=== PATIENT | male | born 1975 | race Asian ===

== ENCOUNTER 2018-02-12 11:01 | Inpatient (IN) | payer BC ==
[2018-02-12] MEDS ORDERED: Morphine Sulfate 2 mg/mL 1mL Syr IVP ONE (11:27)
[2018-02-12] MEDS ORDERED: Sodium Chloride 0.9% 1,000 ML IV ONE (11:27)
--- NOTE | 2018-02-12 11:32 | ED Physician Chart ---
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:: Allergies Allergy/AdvReac Type Severity Reaction Status Date / Time No Known Allergies Allergy Verified 02/12/18 11:09 Vitals:: Vital Signs - 8 hr 02/12/18 11:10 Temp 97.1 F HR 63 RR 18 BP 113/72 O2 Sat % 97 Historian:: Patient, Family Member Review:: Nurse's Note Reviewed ED Review of Systems - Review of Systems General/Constitutional: No fever, No chills, No weight loss, No weakness, No diaphoresis, No edema, No loss of appetite Skin: No skin lesions, No rash, No bruising Head: No headache, No light-headedness Eyes: No loss of vision, No pain, No diplopia ENT: No earache, No nasal drainage, No sore throat, No tinnitus Neck: No neck pain, No swelling, No thyromegaly, No stiffness, No mass noted Cardio Vascular: No chest pain, No palpitations, No PND, No orthopnea, No edema Pulmonary: No SOB, No cough, No sputum, No wheezing GI: Nausea, Vomiting, Diarrhea, Pain, No melena, No hematochezia, No constipation, No hematemesis G/U: Dysuria, No frequency, No hematuria, No nacturia Musculoskeletal: No bone or joint pain, No back pain, No muscle pain Endocrine: No polyuria, No polydipsia Psychiatric: No prior psych history, No depression, No anxiety, No suicidal ideation, No homicidal ideation, No auditory hallucination, No visual hallucination Hematopoietic: No bruising, No lymphadenopathy Allergic/Immuno: No urticaria, No angioedema Neurological: No syncope, No focal symptoms, No weakness, No paresthesia, No headache, No seizure, No dizziness, No confusion, No vertigo ED Past Medical History - Past Medical History Obtainable: Yes Past Medical History: No significant medical hx Family History: HTN Social History: Non Smoker, No Alcohol, No Drug Use, Surgical History: Appendectomy Psychiatricy History: None Medication: Reviewed Family Medical History - Family Member Mother History Unknown: Yes ED Physical Exam - Physical Examination General/Constitutional: Awake, Well-developed, well-nourished, Alert, No distress, GCS 15, Non-toxic appearing, Ambulatory Head: Atraumatic Eyes: Lids, conjuctiva normal, PERRL, EOMI Skin: Nl inspection, No rash, No skin lesions, No ecchymosis, Well hydrated, No lymphadenopathy ENMT: External ears, nose nl, TM canals nl, Nasal exam nl, Lips, teeth, gums nl , Oropharynx nl, Tonsils nl Neck: Nontender, Full ROM w/o pain, No JVD, No nuchal rigidity, No bruit, No mass, No stridor Respiratory: Nl effort/Exclusion, Clear to Auscultation, No Wheeze/Rhonchi/Rales Cardio Vascular: No murmur, gallop, rubs, NL S1 S2, Carotid/Femoral/Distal pulses equal bilaterally Other Cardio Vascular comments:: Irregular Irregular Rhythm GI: No tenderness/rebounding/guarding, No organomegaly, No hernia, Normal BS's, Nondistended, No mass/bruits, No McBurney tenderness, Rectum exam nl Other GI comments:: no pulsatile masses : No CVA tenderness Extremities: No tenderness or effusion, Full ROM, normal strength in all extremities, No edema, Normal digits & nails Neuro/Psych: Alert/oriented, DTR's symmetric, Normal sensory exam, Normal motor strength, Judgement/insight normal, Mood normal, Normal gait, No focal deficits Misc: Normal back, No paraspinal tenderness ED Labs/Radiology/EKG Results - Lab Results Comments:: U/A: + Blood; 0-2 RBCs; + WBCs; Glucose: 149 - Radiology Results Comments:: + Severely Distended Stomach - EKG Interpretations EKG Time:: 11:41 Rate & Rhythm: 59; Atrial Fibrillation Comments:: non-specific st-t changes ED Septic Shock - . Is Septic Shock (SBP<90, OR Lactate>4 mmol\L) present?: No - <6hrs of presentation: Vital Signs: Vital Signs - 8 hr 02/12/18 11:10 Temp 97.1 F HR 63 RR 18 BP 113/72 O2 Sat % 97 ED Reassessment (Disposition) - Reassessment Reassessment Condition:: Improved - Diagnosis Diagnosis:: Dx: Atrial Fibrillation; Abdominal Pain; Hematuria; UTI; Hyperglycemia; Gastric Obstruction/Distention; AGE - Aftercare/Follow up Instructions Aftercare/Follow-Up Instructions:: Counseled pt regarding lab results/diagnosis & need follow up, Counseled pt & family regarding lab results/diagnosis & need follow up - Patient Disposition Discharge/Transfer:: Acute Care w/in this hosp Accepting Physician:: Dr. Cole Time Called:: 1300 Time Responded:: 13:00 Admitted to:: Telemetry Spoke to:: Dr. Cole Admitting Medical Physician:: Dr. Cole Condition at Disposition:: Stable, Improved
[2018-02-12] MEDS ORDERED: Morphine Sulfate 2 mg/mL 1mL Syr ONE (11:44)
[2018-02-12 11:49] LABS: % BASOPHILS 1.2 % (0.0-2.0); % EOSINOPHILS 0.6 % (0.0-5.0); % LYMPHOCYTES 7.7 % (20.0-50.0); % MONOCYTES 4.3 % (2.0-10.0); % NEUTROPHILS 86.2 % (40.0-80.0); BASOPHILE ABSOLUTE 0.1 Th/cumm (0-0.2); EOSINOPHILE ABSOLUTE 0.1 Th/cmm (0.1-0.4); HEMATOCRIT 47.9 % (41.0-60); LYMPHOCYTE ABSOLUTE 0.8 Th/cmm (1.5-3.0); MEAN CELL VOLUME 90.9 fl (80-99); MEAN CORPUSCULAR HEMOGLOBIN 30.4 pg (26.0-30.0); MEAN CORPUSCULAR HGB CONC 33.4 pg (28.0-36.0); MEAN PLATELET VOLUME 8.9 fl; MONOCYTE ABSOLUTE 0.4 Th/cmm (0.3-1.0); NEUTROPHILE ABSOLUTE 8.6 Th/cmm (1.8-8.0); PLATELET COUNT 212 Th/cmm (150-400); RED BLOOD COUNT 5.27 Mil/cmm (4.30-5.70); RED CELL DISTRIBUTION WIDTH 11.9 % (11.5-20.0)
[2018-02-12 11:59] LABS: INR 1.06 (0.5-1.4)
[2018-02-12 12:12] LABS: URINE MICROSCOPIC INDICATED? YES; URINE SOURCE CLEAN C
[2018-02-12 12:13] LABS: ALB/GLOB RATIO 1.9 (1.0-1.8); ALBUMIN 4.7 gm/dL (4.2-5.5); ALKALINE PHOSPHATASE 79 U/L (34-104); ANION GAP 11.5 (7.0-16.0); BILIRUBIN,TOTAL 0.5 mg/dL (0.3-1.0); BUN - UREA NITROGEN 13 mg/dL (7-25); CALCIUM SERUM 9.5 mg/dL (8.6-10.3); CARBON DIOXIDE 22.3 mEq/L (21.0-31.0); CHLORIDE 106 mEq/L (98-107); CHOLESTEROL 171 mg/dL (<200); CREATININE - SERUM 1.1 mg/dL (0.7-1.3); CREATININE KINASE 111 U/L (30-223); GFR AFRICAN-AMERICAN > 60.0 ml/min (>90); GFR NON AFRICAN-AMERICAN > 60.0 ml/min; GLUCOSE 149 mg/dL (70-105); HDL -HIGH DENSITY LIPOPROTEIN 46 mg/dL (23-92); POTASSIUM SERUM 3.8 mEq/L (3.5-5.1); SGOT 14 U/L (13-39); SGPT/ALT 10 U/L (7-52); SODIUM SERUM 136 mEq/L (136-145); TOTAL PROTEIN,SERUM 7.2 gm/dL (6.0-8.3); TRIGLYCERIDES 80 mg/dL (<150)
[2018-02-12 12:14] LABS: URINE BILIRUBIN NEGATIVE (NEGATIVE); URINE BLOOD LARGE (NEGATIVE); URINE GLUCOSE (UA) NEGATIVE (NEGATIVE); URINE KETONE TRACE mg/dL (NEGATIVE); URINE LEUKOCYTE ESTERASE NEGATIVE (NEGATIVE); URINE NITRATE NEGATIVE (NEGATIVE); URINE PROTEIN NEGATIVE (NEGATIVE); URINE UROBILINOGEN 0.2 E.U./dL (0.2 - 1.0)
--- NOTE | 2018-02-12 12:14 | Diagnostic Imaging Report ---
Exam: CT examination abdomen pelvis. HISTORY: Abdominal pain Total DLP equals 428 CTDI equals 8.0 Findings: Multiple contiguous thin section of the abdomen pelvis obtained from lower thorax to pubic symphysis without the administration of oral or intravenous contrast material, no prior studies available comparison. The study demonstrates normal aeration of lung parenchyma the bases. The liver and spleen intact. The stomach severely distended with food content. The gallbladder is normal. The adrenal glands intact. The kidneys demonstrate no evidence of obstructive uropathy or nephrolithiasis. No free fluid is noted. The bowel gas impression nonspecific. There is evidence for mild diverticular disease without diverticulitis. Large amount of fecal content is noted in distal colon. The urinary bladder is intact. The appendix not seen. IMPRESSION: Severely distended stomach with content. Mild diverticulosis. Large amount of fecal content sigmoid colon. Clinical correlation recommended.
[2018-02-12 12:19] LABS: AMYLASE SERUM 27 U/L (29-103); LIPASE 11 U/L (11-82)
[2018-02-12 12:35] LABS: URINE CLARITY CLOUDY (CLEAR); URINE COLOR YELLOW
[2018-02-12 12:36] LABS: URINE AMORPHOUS SEDIMENT MANY URATES (NONE SEEN); URINE BACTERIA NONE SEEN /hpf (NONE SEEN); URINE EPITHELIAL CELLS RARE /lpf (FEW); URINE RBC 0-2 /hpf (0-5); URINE WBC 0-2 /hpf (0-5)
[2018-02-12] MEDS ORDERED: cefTRIAXone 1 GM in Sodium Chloride 0.9% 50 ML IV ONE (14:11)
--- NOTE | 2018-02-12 14:17 | Diagnostic Imaging Report ---
Portable chest x-ray History: Pain Allowing for portable technique the heart size is normal. No focal pulmonary parenchymal processes. No hilar or mediastinal abnormalities. Impression: No acute abnormalities.
[2018-02-12] MEDS ORDERED: HYDROmorphone 1 mg/mL 1mL Syr IVP PRN (18:11)
[2018-02-12] MEDS: Sodium Chloride 0.9% 1,000 ML IV SCH (19:36)
--- NOTE | 2018-02-13 08:49 | History and Physical ---
History of Present Illness - HPI Chief Complaint: Abdominal pain HPI: Patient refer that for 3 days he has having abdominal pain, reason why he came to ER. During ER evaluation was found A-Fib, and UTI. Vital Signs: Last Vital Signs Temp 96.8 F 02/13/18 07:44 Pulse 67 02/13/18 07:44 Resp 17 02/13/18 07:44 BP 106/60 02/13/18 07:44 Pulse Ox 100 02/13/18 07:44 Past Medical History Cardiovascular: Report: No Pertinent Hx Pulmonary: Report: No Pertinent Hx [employer]: Report: No Pertinent Hx GI: Report: Constipation Psych: Report: No Pertinent Hx Musculoskeletal: Report: No Pertinent Hx Rheumatologic: Report: No pertinent Hx Infectious Disease: Report: No Pertinent Hx Renal/: Report: UTI Endocrine: Report: No Pertinent Hx Dermatology: Report: No Pertinent Hx - Past Surgical History Past Surgical History: No pertinent Hx Family Medical History - Family Member Mother History Unknown: Yes Ethnicity: Non- Hx Family Cancer: No Hx Family Coronary Artery Disease: No Hx Family Congestive Heart Failure: No Hx Family Hypertension: No Hx Family Stroke: No Hx Family Diabetes: No Hx Family Seizures: No Hx Family Dementia: No Hx Family AIDS: No Hx Family HIV: No Hx Family COPD: No Hx Family Hepatitis: No Hx Family Psychiatric Problems: No Hx Family Tuberculosis: No Social History Smoke: No Alcohol: None Drugs: None Lives: With Family Domestic Violence: Negative - Allergies Allergies/Adverse Reactions: Allergies Allergy/AdvReac Type Severity Reaction Status Date / Time No Known Allergies Allergy Verified 02/12/18 11:09 Review of Systems - Review of Systems Constitutional: Report: No Significant Eyes: Report: No Significant ENT: Report: No Significant Respiratory: Report: No Significant Cardiovascular: Report: No Significant Gastrointestinal: Report: Other (Abdominal pain) Genitourinary: Report: Dysuria Musculoskeletal: Report: No Significant Skin: Report: No Significant Neurological: Report: No Significant Physical Exam - Physical Exam HEENT: Report: Ears Nose Throat within normal limits Neck: Report: Within normal limits Cardiovascular Systems: Report: Regular, Rate and Rhythm Respiratory: Report: Breath Sounds are within normal limits Abdomen: Report: Non-tender to palpation, Other Back: Report: Inspection of back is within normal limits. Extremities: Report: Non-tender to palpation. Skin: Report: Color of skin is within normal limits Neuro/Psych: Report: Mood affect is within normal limits - Lab Results All Lab Results last 24 hours: Laboratory Results - last 24 hr 02/12/18 02/12/18 02/12/18 11:05 11:35 11:35 WBC 10.0 RBC 5.27 Hgb 16.0 Hct 47.9 MCV 90.9 MCH 30.4 H MCHC Differential 33.4 RDW 11.9 Plt Count 212 MPV 8.9 Neutrophils % 86.2 H Lymphocytes % 7.7 L Monocytes % 4.3 Eosinophils % 0.6 Basophils % 1.2 PT 11.0 INR 1.06 Sodium Potassium Chloride Carbon Dioxide Anion Gap BUN Creatinine Est GFR ( Amer) Est GFR (Non-Af Amer) BUN/Creatinine Ratio Glucose Calcium Total Bilirubin AST ALT Alkaline Phosphatase Creatine Kinase Troponin I B-Natriuretic Peptide Total Protein Albumin Globulin Albumin/Globulin Ratio Triglycerides Cholesterol LDL Cholesterol Direct HDL Cholesterol Amylase Lipase Urine Source CLEAN C Urine Color YELLOW Urine Clarity CLOUDY Urine pH 6.0 Ur Specific [place] >= 1.030 Urine Protein NEGATIVE Urine Glucose (UA) NEGATIVE Urine Ketones TRACE Urine Blood LARGE H Urine Nitrate NEGATIVE Urine Bilirubin NEGATIVE Urine Urobilinogen 0.2 Ur Leukocyte Esterase NEGATIVE Urine RBC 0-2 H Urine WBC 0-2 Ur Epithelial Cells RARE Uric Acid Crystals FEW Amorphous Sediment MANY URATES Urine Bacteria NONE SEEN 02/12/18 02/12/18 02/12/18 11:35 11:35 11:35 WBC RBC Hgb Hct MCV MCH MCHC Differential RDW Plt Count MPV Neutrophils % Lymphocytes % Monocytes % Eosinophils % Basophils % PT INR Sodium 136 Potassium 3.8 Chloride 106 Carbon Dioxide 22.3 Anion Gap 11.5 BUN 13 Creatinine 1.1 Est GFR ( Amer) > 60.0 Est GFR (Non-Af Amer) > 60.0 BUN/Creatinine Ratio 11.8 Glucose 149 H Calcium 9.5 Total Bilirubin 0.5 AST 14 ALT 10 Alkaline Phosphatase 79 Creatine Kinase 111 Troponin I < 0.01 L B-Natriuretic Peptide < 5.0 L Total Protein 7.2 Albumin 4.7 Globulin 2.5 Albumin/Globulin Ratio 1.9 H Triglycerides 80 Cholesterol 171 LDL Cholesterol Direct 116 HDL Cholesterol 46 Amylase Lipase Urine Source Urine Color Urine Clarity Urine pH Ur Specific [place] Urine Protein Urine Glucose (UA) Urine Ketones Urine Blood Urine Nitrate Urine Bilirubin Urine Urobilinogen Ur Leukocyte Esterase Urine RBC Urine WBC Ur Epithelial Cells Uric Acid Crystals Amorphous Sediment Urine Bacteria 02/12/18 11:35 WBC RBC Hgb Hct MCV MCH MCHC Differential RDW Plt Count MPV Neutrophils % Lymphocytes % Monocytes % Eosinophils % Basophils % PT INR Sodium Potassium Chloride Carbon Dioxide Anion Gap BUN Creatinine Est GFR ( Amer) Est GFR (Non-Af Amer) BUN/Creatinine Ratio Glucose Calcium Total Bilirubin AST ALT Alkaline Phosphatase Creatine Kinase Troponin I B-Natriuretic Peptide Total Protein Albumin Globulin Albumin/Globulin Ratio Triglycerides Cholesterol LDL Cholesterol Direct HDL Cholesterol Amylase 27 L Lipase 11 Urine Source Urine Color Urine Clarity Urine pH Ur Specific [place] Urine Protein Urine Glucose (UA) Urine Ketones Urine Blood Urine Nitrate Urine Bilirubin Urine Urobilinogen Ur Leukocyte Esterase Urine RBC Urine WBC Ur Epithelial Cells Uric Acid Crystals Amorphous Sediment Urine Bacteria - Assessment Assessment: Patient is awake, alert, calm ,in no acute distress. Dx: A-fib, UTI, constipation - Plan Plan: Patient in NS, IV AB, Pain control, consult with Cardiology requested. Will continue to monitor.
[2018-02-13] MEDS: Sodium Chloride 0.9% 1,000 ML IV SCH (08:55)
[2018-02-13 08:57] LABS: % BASOPHILS 0.5 % (0.0-2.0); % EOSINOPHILS 1.6 % (0.0-5.0); % LYMPHOCYTES 20.9 % (20.0-50.0); % MONOCYTES 5.6 % (2.0-10.0); % NEUTROPHILS 71.4 % (40.0-80.0); EOSINOPHILE ABSOLUTE 0.1 Th/cmm (0.1-0.4); HEMOGLOBIN 14.1 gm/dL (12-16); LYMPHOCYTE ABSOLUTE 1.3 Th/cmm (1.5-3.0); MEAN CELL VOLUME 90.5 fl (80-99); MEAN CORPUSCULAR HEMOGLOBIN 30.9 pg (26.0-30.0); MEAN CORPUSCULAR HGB CONC 34.2 pg (28.0-36.0); MEAN PLATELET VOLUME 8.9 fl; MONOCYTE ABSOLUTE 0.3 Th/cmm (0.3-1.0); NEUTROPHILE ABSOLUTE 4.4 Th/cmm (1.8-8.0); PLATELET COUNT 181 Th/cmm (150-400); RED BLOOD COUNT 4.55 Mil/cmm (4.30-5.70); WHITE BLOOD COUNT 6.1 Th/cmm (4.8-10.8)
[2018-02-13 08:58] LABS: HEMATOCRIT 41.2 % (41.0-60)
[2018-02-13 09:21] LABS: ALB/GLOB RATIO 1.8 (1.0-1.8); ALBUMIN 3.7 gm/dL (4.2-5.5); ALKALINE PHOSPHATASE 68 U/L (34-104); ANION GAP 8.3 (7.0-16.0); BILIRUBIN,TOTAL 0.5 mg/dL (0.3-1.0); BUN - UREA NITROGEN 11 mg/dL (7-25); CALCIUM SERUM 8.6 mg/dL (8.6-10.3); CARBON DIOXIDE 25.5 mEq/L (21.0-31.0); CHLORIDE 108 mEq/L (98-107); CREATININE - SERUM 0.7 mg/dL (0.7-1.3); GFR AFRICAN-AMERICAN > 60.0 ml/min (>90); GFR NON AFRICAN-AMERICAN > 60.0 ml/min; GLUCOSE 146 mg/dL (70-105); POTASSIUM SERUM 3.8 mEq/L (3.5-5.1); SGOT 11 U/L (13-39); SGPT/ALT 7 U/L (7-52); SODIUM SERUM 138 mEq/L (136-145); TOTAL PROTEIN,SERUM 5.8 gm/dL (6.0-8.3)
--- NOTE | 2018-02-13 21:28 | Discharge Summary ---
General Discharge Summary - Discharge Summary Date of Admission: 02/12/18 Discharge Date: 02/13/18 Laboratory Findings: Laboratory Results - last 24 hr 02/13/18 02/13/18 08:47 08:47 WBC 6.1 RBC 4.55 Hgb 14.1 Hct 41.2 D MCV 90.5 MCH 30.9 H MCHC Differential 34.2 RDW 12.0 Plt Count 181 MPV 8.9 Neutrophils % 71.4 Lymphocytes % 20.9 Monocytes % 5.6 Eosinophils % 1.6 Basophils % 0.5 Sodium 138 Potassium 3.8 Chloride 108 H Carbon Dioxide 25.5 Anion Gap 8.3 BUN 11 Creatinine 0.7 Est GFR ( Amer) > 60.0 Est GFR (Non-Af Amer) > 60.0 BUN/Creatinine Ratio 15.7 Glucose 146 H Calcium 8.6 Total Bilirubin 0.5 AST 11 L ALT 7 Alkaline Phosphatase 68 Total Protein 5.8 L Albumin 3.7 L Globulin 2.1 Albumin/Globulin Ratio 1.8 Disposition: PT DISCHARGED HOME Consults and Follow-Up: RACHID MAHAJAN [Other] not on staff,PCP is [Primary Care Provider] - Instructions: Cardiac Diet, [id number], Urinary Tract Infection, [id number]
--- NOTE | 2018-02-13 21:48 | Discharge Summary ---
General Discharge Summary - Discharge Summary Date of Admission: 02/12/18 Admitting Diagnosis: A-fib, UTI, constipation. Discharge Date: 02/13/18 Discharge Diagnosis: A-fib, UTI, Intestinal constipation. Laboratory Findings: Laboratory Results - last 24 hr 02/13/18 02/13/18 08:47 08:47 WBC 6.1 RBC 4.55 Hgb 14.1 Hct 41.2 D MCV 90.5 MCH 30.9 H MCHC Differential 34.2 RDW 12.0 Plt Count 181 MPV 8.9 Neutrophils % 71.4 Lymphocytes % 20.9 Monocytes % 5.6 Eosinophils % 1.6 Basophils % 0.5 Sodium 138 Potassium 3.8 Chloride 108 H Carbon Dioxide 25.5 Anion Gap 8.3 BUN 11 Creatinine 0.7 Est GFR ( Amer) > 60.0 Est GFR (Non-Af Amer) > 60.0 BUN/Creatinine Ratio 15.7 Glucose 146 H Calcium 8.6 Total Bilirubin 0.5 AST 11 L ALT 7 Alkaline Phosphatase 68 Total Protein 5.8 L Albumin 3.7 L Globulin 2.1 Albumin/Globulin Ratio 1.8 Hospital Course: Bobby was admited to telemetry and with treatment pain improved. and he had no more A-fib. Treatment: Patient was started in IV NS, pain control, Ceftriaxone, and was evaluated by cardiology. Condition at Discharge: Stable Disposition: PT DISCHARGED HOME Activity: As Tolerated Discharge Diet: Regular Consults and Follow-Up: RACHID MAHAJAN [Other] not on staff,PCP is [Primary Care Provider] - Instructions: Cardiac Diet, [id number], Urinary Tract Infection, [id number]
--- NOTE | 2018-02-14 05:34 | Consultation ---
DATE OF CONSULTATION: 02/12/[address] Cole. HISTORY AND PHYSICAL: This is a 43-year-old oriental male patient who came to the Emergency Room complaining of abdominal pain, mostly in the left flank radiating to the back. No chest pain. In the Emergency Room, the patient had EKG, which showed sinus bradycardia. Following this, the patient is being admitted. The patient had a CT scan of the abdomen, which showed diverticulosis with constipation. FAMILY HISTORY: Unremarkable. SOCIAL HISTORY: No history of alcohol abuse. The patient smokes about 6 cigarettes a day. ALLERGIES: None. PHYSICAL EXAMINATION: VITAL SIGNS: Blood pressure 106/60, pulse 67, respirations 20. HEAD: Normocephalic. No lumps or bumps. EYES: Pupils equal, reactive to light. Fundi show AV nicking, sclerae white, conjunctivae pink. NECK: Carotid 2+. Normal upstroke. JVD flat. Thyroid not palpable. Lymph nodes not palpable. CHEST: Shows increased AP diameter. No kyphosis, scoliosis. LUNGS: Bilateral bronchovesicular breath sounds. HEART: PMI fifth intercostal space with lateral to midclavicular line. S1, S2. No S3, S4, soft systolic murmur. ABDOMEN: Soft. Liver, spleen not palpable. No organomegaly. Bowel sounds active. NEUROLOGIC: Unremarkable. EXTREMITIES: Peripheral pulses 2+. No pedal edema. CLINICAL IMPRESSION: Low back pain, mild diverticulosis, constipation. EKG shows sinus bradycardia, no evidence of atrial fibrillation. JOB# [id number]
== END 2018-02-13 12:40 | disposition home or self-care (01) | DRG 690 ==
LOC: ER 11:01 → TELE 15:10
PROVIDERS: ADMIT General Practice; ATTEND General Practice
DX: N39.0 Urinary tract infection, site not specified (principal); I48.91 Unspecified atrial fibrillation; R10.9 Unspecified abdominal pain; R31.9 Hematuria, unspecified; K52.9 Noninfective gastroenteritis and colitis, unspecified; K31.89 Other diseases of stomach and duodenum; K59.00 Constipation, unspecified; K57.30 Diverticulosis of large intestine without perforation or abscess without bleeding; M54.5 Low back pain; R62.7 Adult failure to thrive; Z82.49 Family history of ischemic heart disease and other diseases of the circulatory system; Z90.49 Acquired absence of other specified parts of digestive tract
CPT/HCPCS: 36415-UA; 71045-TC; 80053-TC; 80061-TC; 81001-TC; 82150-TC; 82550-TC; 83690-TC; 83880-TC; 84484-TC; 85007-TC; 85025-TC; 85027-TC; 85610-TC; 87086-90; 93005; 94760; 96375; J0696; J2270; J2405; J7030